=== PATIENT | male | born 1995 | race Caucasian/White ===

== ENCOUNTER 2016-08-02 11:58 | Emergency (ER) | payer OTHER ==
[~2016-08-02] VITALS: Wt 131.5 kg
[~2016-08-02 11:58] MED LIST: BACTRIM DS 8001 TA1 PO; CARAFATE1 G1 PO; CLONIDINE0.1 MG PO; CYCLOBENZAPRINE10 MG PO; HYDROCODONE BIT1 T11 PO; KEFLEX500 MG PO; MOTRIN600 MG PO; MOTRIN800 MG PO; NAPROSYN500 MG PO; PREDNISONE10 MG PO; TOPCARE OMEPRAZ20 MG PO; ULTRAM50 MG PO; VIBRAMYCIN100 MG PO; ZOFRAN4 MG PO
[2016-08-02] MEDS ORDERED: CEPHALEXIN500 M1 PO (12:33)
[2016-08-02] MEDS ORDERED: NAPROSYN500 MG PO (12:33)
[2016-08-02] MEDS ORDERED: BACTRIM DS 8001 TA1 PO (12:33)
== END 2016-08-02 12:55 | disposition home or self-care (01) ==
LOC: ED 11:58
DX: L02.411 Cutaneous abscess of right axilla (principal)

== ENCOUNTER 2018-06-22 08:56 | Emergency (ER) | payer SELFPAY ==
[~2018-06-22] VITALS: Ht 190.5 cm; Wt 136.1 kg
[~2018-06-22 08:56] MED LIST changes: +CEPHALEXIN500 M1 PO
== END 2018-06-22 09:40 | disposition home or self-care (01) ==
LOC: ED 08:56
DX: S49.91XA Unspecified injury of right shoulder and upper arm, initial encounter (principal); W10.8XXA Fall (on) (from) other stairs and steps, initial encounter; Y93.89 Activity, other specified; Y92.89 Other specified places as the place of occurrence of the external cause; Y99.8 Other external cause status

== ENCOUNTER 2018-10-21 19:26 | Emergency (ER) | payer SELFPAY ==
[2018-10-21] MEDS ORDERED: Motrin,Rufen800 MG PO (21:00)
== END 2018-10-21 20:59 | disposition home or self-care (01) ==
LOC: ED 19:26
DX: S43.004A Unspecified dislocation of right shoulder joint, initial encounter (principal); X50.1XXA Overexertion from prolonged static or awkward postures, initial encounter; Y93.67 Activity, basketball; Y92.310 Basketball court as the place of occurrence of the external cause; Y99.8 Other external cause status

== ENCOUNTER 2018-12-28 11:26 | Emergency (ER) | payer SELFPAY ==
[~2018-12-28] VITALS: Ht 187.9 cm; Wt 136.1 kg
[~2018-12-28 11:26] MED LIST changes: +Motrin,Rufen800 MG PO
[2018-12-28] MEDS ORDERED: NAPROSYN500 MG PO (11:43)
[2018-12-28] MEDS ORDERED: PENICILLIN VK500 MG PO (11:43)
== END 2018-12-28 12:00 | disposition home or self-care (01) ==
LOC: ED 11:26
DX: K04.7 Periapical abscess without sinus (principal)

== ENCOUNTER → 2020-01-08 | Outpatient (CLI) | payer SELFPAY ==
[~2020-01-08] MED LIST changes: +PENICILLIN VK500 MG PO
== END | disposition home or self-care (01) ==
LOC: COVID19 10:17
PROVIDERS: ATTEND Hospitalist
DX: Z20.828 Contact with and (suspected) exposure to other viral communicable diseases (principal)

== ENCOUNTER 2020-05-06 00:02 | Emergency (ER) | payer SELFPAY ==
[~2020-05-06] VITALS: Ht 185.4 cm; Wt 131.5 kg
== END 2020-05-06 00:40 | disposition home or self-care (01) ==
LOC: ED 00:02
DX: K08.89 Other specified disorders of teeth and supporting structures (principal); Z79.899 Other long term (current) drug therapy

== ENCOUNTER 2020-05-06 21:45 | Emergency (ER) | payer MEDICAID ==
[~2020-05-06] VITALS: Ht 185.4 cm; Wt 131.5 kg
== END 2020-05-06 22:25 | disposition home or self-care (01) ==
LOC: ED 21:45
DX: K08.89 Other specified disorders of teeth and supporting structures (principal); Z79.899 Other long term (current) drug therapy

== ENCOUNTER 2021-12-12 08:46 | Emergency (ER) | payer OTHER ==
[~2021-12-12] VITALS: Ht 187.9 cm; Wt 129.3 kg
== END 2021-12-12 10:56 | disposition home or self-care (01) ==
LOC: ED 08:46
DX: M25.512 Pain in left shoulder (principal); V49.9XXA Car occupant (driver) (passenger) injured in unspecified traffic accident, initial encounter; Y93.89 Activity, other specified; Y92.89 Other specified places as the place of occurrence of the external cause; Y99.8 Other external cause status

== ENCOUNTER 2021-12-12 22:20 | Emergency (ER) | payer OTHER ==
[~2021-12-12] VITALS: Ht 187.9 cm; Wt 129.3 kg
[2021-12-13 00:42] LABS: BASO % 0.3 % (0.0-1.0); EOS # 0.4 10*3/uL (0.0-0.4); EOS % 3.3 % (1.0-4.0); HEMATOCRIT 43.7 % (42.0-52.0); LYMPH # 4.6 10*3/uL (1.3-4.4); LYMPH % 35.9 % (27.0-41.0); MEAN CELL VOLUME 87.2 fl (80.0-94.0); MEAN CORPUSCULAR HGB 29.9 pg (27.0-31.0); MEAN CORPUSCULAR HGB CONC 34.3 g/dl (33.0-37.0); MEAN PLATELET VOLUME 10.5 fl (9.6-12.3); MONO # 0.9 10*3/uL (0.1-1.0); MONO % 7.1 % (3.0-9.0); NEUT # 6.8 10*3/uL (2.3-7.9); NEUT % 53.2 % (47.0-73.0); PLATELET COUNT AUTOMATED 313 10*3/uL (130-400); RED BLOOD COUNT 5.01 10*6/uL (4.50-5.90); RED CELL DISTRI WIDTH 12.4 % (0-14.5); WHITE BLOOD COUNT 12.8 10*3/uL (4.8-10.8)
[2021-12-13 00:59] LABS: ALKALINE PHOSPHATASE 78 U/L (45-117); BUN 25 mg/dl (7-24); CHLORIDE 109 mmol/L (98-107); CREATININE 0.89 mg/dL (0.70-1.30); POTASSIUM 3.9 mmol/L (3.5-5.1); SGOT/AST 23 IU/L (3-35); SGPT/ALT 37 U/L (12-78); SODIUM 143 mmol/L (136-145); TOTAL PROTEIN 7.6 gm/dL (6.4-8.2)
== END 2021-12-13 01:44 | disposition home or self-care (01) ==
LOC: ED 22:20
PROVIDERS: Family Medicine
DX: R20.0 Anesthesia of skin (principal); R20.2 Paresthesia of skin; Z79.2 Long term (current) use of antibiotics; Z79.899 Other long term (current) drug therapy; V43.52XA Car driver injured in collision with other type car in traffic accident, initial encounter; Y93.89 Activity, other specified; Y92.89 Other specified places as the place of occurrence of the external cause; Y99.8 Other external cause status

== ENCOUNTER → 2022-03-12 | Outpatient (CLI) | payer OTHER | END | disposition home or self-care (01) | LOC: US 10:48 | PROVIDERS: ATTEND Nurse Practitioner Family | DX: M79.89 Other specified soft tissue disorders (principal); R20.2 Paresthesia of skin ==